=== PATIENT | female | born 1955 ===

== ENCOUNTER → 2017-02-05 | Outpatient (CLI) | payer BC, SELFPAY ==
--- NOTE | 2017-02-05 14:19 | US ---
Procedure: US GALLBLADDER Exam Date: 02/05/2017 Ordering Provider: RAFAEL GÓMEZ Clinical Indication: ABD PAIN Comparison: 08/31/2015 Technique: Real-time ultrasonography was obtained over the right upper quadrant and territory representative images were recorded. Findings: There are no gallstones within the gallbladder lumen. There is no gallbladder wall thickening or pericholecystic fluid. The gallbladder is normal in size and contour. The extrahepatic common duct is normal in size measuring 3.4 mm. The liver is normal in size and contour. There is diffuse increased echogenicity of the liver consistent with fatty infiltration. There is no hepatic mass. There is no intrahepatic ductal dilatation. There is no ascites. Impression: 1. Hepatic steatosis. 2. Examination is otherwise unremarkable. Electronically signed by: Molina Garcia MD 02/05/2017 2:19 PM CDT
--- NOTE | 2017-02-11 09:20 | MAM ---
EXAM DESCRIPTION: Screening Mammogram,Bilateral CLINICAL HISTORY: 61 years, Female, Screening mammogram COMPARISON: None TECHNIQUE: CC and MLO digital mammograms with computer aided detection. FINDINGS: The breast parenchyma is heterogeneously dense which may decrease the sensitivity of mammography. There is an area of asymmetric parenchymal density and possible architectural distortion at the 12:00 position of the left breast 5 to 6 cm from the nipple. Benign microcalcifications are present. IMPRESSION: BI-RADS 0: INCOMPLETE FOLLOW-UP: Need additional imaging evaluation to include spot compression views of the left breast in the CC and MLO projections. A true lateral view should also be obtained. Ultrasound will be necessary. If old mammograms are available they should be obtained for comparison. Electronically signed by: Abiodun Mills MD 02/11/2017 9:19 AM CDT
== END ==
LOC: US 08:08
PROVIDERS: ATTEND Family Medicine
DX: Z12.31 Encounter for screening mammogram for malignant neoplasm of breast (principal); R10.11 Right upper quadrant pain; K76.0 Fatty (change of) liver, not elsewhere classified

== ENCOUNTER → 2017-02-27 | Outpatient (CLI) | payer SELFPAY ==
--- NOTE | 2017-02-27 16:42 | MAM ---
History: Mammographic asymmetry left breast on baseline study. DATE OF SERVICE: 02/27/2017 Services provided: Full field digital unilateral left diagnostic mammography. FINDINGS: True lateral and rolled views left breast are obtained as well as spot compression films. Partial effacement of the nodular asymmetry is suggested. Physical examination demonstrates mastopexy scars. No palpable changes are noted. Ultrasound exam 11-1 o'clock left breast confirms normal glandular tissue with no sonographic abnormality. The patient does have a small group of skin calcifications in the left breast at 12:00. IMPRESSION: Benign exam. No mammographic or sonographic evidence for malignancy in the left breast. Findings are secondary to normal glandular tissue in a patient status post mastopexy. Recommendation: Routine annual mammography. Findings and recommendations were discussed with the patient. BIRAD CATEGORY: 2 BENIGN Electronically signed by: Brittany Franco MD 02/27/2017 4:37 PM CDT
== END ==
LOC: MAMMO 14:51
PROVIDERS: ATTEND Family Medicine
DX: R92.8 Other abnormal and inconclusive findings on diagnostic imaging of breast (principal)
CPT/HCPCS: 76642; G0206

== ENCOUNTER → 2018-03-13 | Outpatient (CLI) | payer OTHER | LOC: GMATM 18:20 | PROVIDERS: ATTEND Nurse Practitioner Family | DX: N30.00 Acute cystitis without hematuria (principal) ==

== ENCOUNTER 2018-07-27 20:43 | Emergency (ER) | payer BC, OTHER ==
[2018-07-27 20:59] VITALS: BP 156/87; TEMP 98.4
[2018-07-27] MEDS ORDERED: CYCLOBENZAPRINE HCL 10 MG TAB PO ONE (21:32)
[2018-07-27] MEDS ORDERED: predniSONE 20 MG TAB PO ONE (21:32)
--- NOTE | 2018-07-27 21:36 | ED.PDOC ---
History of Present Illness - General Chief Complaint: Lower Extremity Injury Stated Complaint: left lower leg possible DVT Time Seen by Provider: 07/27/18 20:48 Source: patient Exam Limitations: no limitations - History of Present Illness Initial Comments: the patient's 62-year-old female presenting to the emergency room secondary to pain in left calf with mild tingling of the toes for the last couple of days. No known trauma. No history of any blood clots. Sensation is actually preserved. She does appear to be vascularly intact. Dorsalis pedis and posterior tibialis pulses are palpable and symmetrical bilaterally. No bruising. No palpable firmness. No palpable cords. She does have posterior calf tenderness to palpation. Timing/Duration: other - 3 days Severity: moderate Improving Factors: immobilization Worsening Factors: movement Associated Symptoms: denies symptoms Allergies/Adverse Reactions: Allergies Penicillins Allergy (Verified 07/27/18 20:59) Home Medications: Ambulatory Orders Cyclobenzaprine HCl [Flexeril] 5 mg PO TID PRN #30 tab 07/27/18 Losartan Potassium 07/27/18 Nature-Throid 07/27/18 Review of Systems - Review of Systems Constitutional: States: no symptoms reported EENTM: States: no symptoms reported Respiratory: States: no symptoms reported Cardiology: States: no symptoms reported Gastrointestinal/Abdominal: States: no symptoms reported Genitourinary: States: no symptoms reported Musculoskeletal: States: see HPI Skin: States: no symptoms reported Neurological: States: see HPI Endocrine: States: no symptoms reported All other Systems: No Change from Baseline Past Medical History (General) - Patient Medical History Hx Asthma: Yes Hx Hypertension: Yes Hx Thyroid Disease: Yes Hx Diabetes: No Surgical History: Hysterectomy - Vaccination History Immunizations Up to Date: No - Female History Patient is a Female of Child Bearing Age (10 -59 yrs old): No - Triage Comment ED Triage Comment: Sent from [facility] to rule out left leg DVT Family Medical History - Family History Father Family History: Unknown Physical Exam - Physical Exam General Appearance: Alert, Comfortable, No apparent distress Eye Exam: bilateral normal Ears, Nose, Throat: hearing grossly normal Neck: full range of motion Respiratory: no respiratory distress, no accessory muscle use Cardiovascular/Chest: normal peripheral pulses, no edema Peripheral Pulses: dorsalis pedis,right: 2+, dorsalis pedis,left: 2+, posterior tibialis,right: 2+, posterior tibialis,left: 2+ Gastrointestinal/Abdominal: non tender, soft Rectal Exam: deferred Back Exam: no CVA tenderness, no vertebral tenderness Extremity: normal range of motion, normal inspection, no pedal edema, normal capillary refill, other - ee history of present illness 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 Venous Doppler was negative. This is most likely muscle spasm from strain. It is possible she may be developing an early Meyer's cyst. If symptoms persist or worsen then directed imaging of the knee joint may be worthwhile. For now the patient is being dosed with a dose of prednisone and Flexeril. She'll be written for Flexeril for the next couple of days for as needed use. She needs to keep herself well hydrated. She can apply topical heat and do stretching exercises. I would recommend she follow-up with her primary care doctor later this week. ER warnings were given. Departure - Departure Clinical Impression: Muscle strain, lower leg Qualifiers: Encounter type: initial encounter Laterality: left Qualified Code(s): S86.912A - Strain of unspecified muscle(s) and tendon(s) at lower leg level, left leg, initial encounter Disposition: Discharge to Home or Self Care Condition: Fair Departure Forms: ED Discharge - Pt. Copy, Patient Portal Self Enrollment Diet: regular diet Activity: increase activity as tolerated Referrals: Casimiro Mendes MD [Primary Care Provider] - 1-5 Days Prescriptions: Cyclobenzaprine HCl [Flexeril] 5 mg PO TID PRN #30 tab PRN Reason: Muscle Spasms Home Medications: Ambulatory Orders Cyclobenzaprine HCl [Flexeril] 5 mg PO TID PRN #30 tab 07/27/18 Losartan Potassium 07/27/18 Nature-Throid 07/27/18 Additional Instructions: the patient is a 62-year-old female presenting to the emergency room secondary to posterior calf pain and some tingling in her left foot. Venous Doppler was negative. This is most likely muscle spasm from strain. It is possible she may be developing an early Meyer's cyst. If symptoms persist or worsen then directed imaging of the knee joint may be worthwhile. For now the patient is being dosed with a dose of prednisone and Flexeril. She'll be written for Flexeril for the next couple of days for as needed use. She needs to keep herself well hydrated. She can apply topical heat and do stretching exercises. I would recommend she follow-up with her primary care doctor later this week. ER warnings were given.
[2018-07-27 21:53] VITALS: O2SAT 99
--- NOTE | 2018-07-27 22:11 | US ---
PROCEDURE: US Duplex Left Lower Extremity Veins CLINICAL INDICATION: The patient is 62 years old and is Female; calf pain, concern for dvt TECHNIQUE: Real-time duplex ultrasound scan of the left lower extremity veins integrating B-mode two-dimensional vascular structure, Doppler spectral analysis, color flow Doppler imaging and compression. COMPARISON: No relevant prior studies available. FINDINGS: DEEP VEINS: Unremarkable. No DVT in the visualized common femoral, femoral, proximal deep femoral popliteal , peroneal or posterior tibial veins. The veins demonstrate normal color flow, are normally compressible, with normal phasic flow and/or augmentation response. SUPERFICIAL VEINS: Unremarkable. No thrombus in the visualized great saphenous vein. SOFT TISSUES: No acute abnormality identified. No popliteal cyst. IMPRESSION: Normal left lower extremity duplex venous ultrasound. Electronically signed by: Nav Morin MD 07/27/2018 10:10 PM CDT
== END 2018-07-27 21:46 | disposition home or self-care (01) ==
LOC: ER 20:43
DX: S86.912A Strain of unspecified muscle(s) and tendon(s) at lower leg level, left leg, initial encounter (principal); J45.909 Unspecified asthma, uncomplicated; I10 Essential (primary) hypertension; E07.9 Disorder of thyroid, unspecified; Z79.899 Other long term (current) drug therapy; Z88.0 Allergy status to penicillin; X58.XXXA Exposure to other specified factors, initial encounter; Y92.9 Unspecified place or not applicable
CPT/HCPCS: 93971; J7512

== ENCOUNTER → 2018-07-30 | Outpatient (CLI) | payer BC | LOC: GMAE 14:27 | PROVIDERS: ATTEND Family Medicine | DX: Z00.01 Encounter for general adult medical examination with abnormal findings (principal) ==

== ENCOUNTER → 2020-01-05 | Outpatient (CLI) | payer BC | DX: Z12.31 Encounter for screening mammogram for malignant neoplasm of breast (principal) ==

== ENCOUNTER → 2020-04-03 | Outpatient (CLI) | payer BC | LOC: LAB.O 07:02 | PROVIDERS: ATTEND Family Medicine | DX: E03.9 Hypothyroidism, unspecified (principal); E78.2 Mixed hyperlipidemia; E11.9 Type 2 diabetes mellitus without complications ==